=== PATIENT | male | born 1970 | race Caucasian/White ===

== ENCOUNTER 2021-05-20 06:27 | Emergency (ER) | payer BC, SELFPAY ==
--- NOTE | ~2021-05-20 | CT_ITS ---
EXAMINATION: CT abdomen pelvis wo con DATE: 05/20/2021 07:30 INDICATION: Right flank pain. Nausea and vomiting. TECHNIQUE: Computed tomography (CT) of the abdomen and pelvis was performed without intravenous contr ast. Automated exposure control and iterative reconstruction technique were employed. The dose-length product was 1167.63 mGy-cm. COMPARISON: CT abdomen 01/05/2006 FINDINGS: The visualized portions of the lung bases demonstrate mild atelectasis. There is 11 mm nodu le in lingula, increased from 7 mm on 01/05/2006. No pleural effusion. The heart size is normal. No per icardial effusion. There is diffuse hepatic steatosis. The gallbladder, spleen, pancreas, adrenal gla nds, and kidneys are normal. There is mild right hydroureter. There is a 2 mm stone at right ureterov esicular junction. There are no dilated loops of bowel. The appendix is not visualized. There is chrome plater helper daniela mild fat stranding at the root of the small bowel mesentery. There is a supraumbilical ventral he rnia containing fat. There are no pathologically enlarged lymph nodes. There is no free intraperitone al fluid. There is moderate lower lumbar spondylosis. IMPRESSION: 1. 2 mm stone at right ureterovesicular junction with mild right hydroureter. 2. Supraumbilical ventral hernia containing fat. 3. 11 mm nodule in lingula, increased from 7 mm on 01/05/2006, suspicious for low-grade neoplasm such a s carcinoid. CT-guided biopsy is recommended. Reviewed, dictated and finalized at location A. [facility] IMPRESSION: 1. 2 mm stone at right ureterovesicular junction with mild right hydroureter. 2. Supraumbilical ventral hernia containing fat. 3. 11 mm nodule in lingula, increased from 7 mm on 01/05/2006, suspicious for low -grade neoplasm such as carcinoid. CT-guided biopsy is recommended.
--- NOTE | 2021-05-20 06:36 | PC.NURSE ---
Pt reports unable to sit still d/t pain. moaning loudly. vomiting forcefully in wr restroom. c/o dry mouth, and requesting water. awaiting ED bed assignment.
[2021-05-20 06:48] VITALS: BP 162/97; PULSE 88; RESP 18; TEMP 36.8; O2SAT 99
--- NOTE | 2021-05-20 06:54 | ED.GENADULT ---
HPI - General Adult General Chief complaint: Abdominal Pain <Tomi Carter MD - Last Filed: 05/20/21 06:56> Stated complaint: right flank pain <Tomi Carter MD - Last Filed: 05/20/21 06:56> Time Seen by Provider: 05/20/21 06:50 <Tomi Carter MD - Last Filed: 05/20/21 06:56> History of Present Illness HPI narrative: Patient 50-year-old gentleman who presents the emergency department with chief complaint of right flank pain. Patient states the pain began about 530 states that sharp starts in the right flank and radiates to the right lower quadrant patient states is starting to move down into his groin the patient reports he is having nausea with it reports that is not improved by anything nor is it worsened by anything the patient states that has never had pain like this before in the past states he is concerned that he may have a kidney stone patient reports he is had no trauma. <Tomi Carter MD - Last Filed: 05/20/21 06:56> Related Data Allergies/adverse reactions: Allergies Allergy/AdvReac Type Severity Reaction Status Date / Time No Known Allergies Allergy Mild Verified 05/20/21 06:30 <Tomi Carter MD - Last Filed: 05/20/21 06:56> Review of Systems Review of Systems: A 10 system review of systems was completed on the patient and is negative except for what is stated in the HPI. Nursing and ancillary documentation was reviewed. <Tomi Carter MD - Last Filed: 05/20/21 06:56> Exam Narrative: GENERAL: Well-appearing, well-nourished, moderate pain distress. HEAD: Normocephalic, atraumatic. EYES: PERRLA and EOMI. ENT: Nares clear, no rhinorrhea or epistaxis. Mucous membranes moist. NECK: Supple. CHEST: Clear to auscultation. No respiratory distress. HEART: Regular rate and rhythm. No murmur heard. Normal peripheral pulses. ABDOMEN: Soft, nontender, nondistended, normal active bowel sounds. EXTREMITIES: Normal range of motion. No edema. SKIN: Warm, dry, no rash. NEURO: No focal deficits. Alert and oriented x3. PSYCH: Normal mood and affect. <Tomi Carter MD - Last Filed: 05/20/21 06:56> Course Reevaluation(s) Reevaluation #1: Patient feeling much better, currently is asymptomatic. Patient was notified about the size of the pulmonary nodule and the suspicious for slow growing malignancy. A copy of the CAT scan report was given to the patient prior to discharge. The patient and his nodded that they understand my explanation, our nurse Baylee was at the bedside at the same time. <Majo Moseley MD - Last Filed: 05/20/21 10:45> Date: 05/20/21 <Majo Moseley MD - Last Filed: 05/20/21 10:45> Time: 10:37 <Majo Moseley MD - Last Filed: 05/20/21 10:45> Vital Signs Vital signs: Vital Signs Temperature 36.8 C 05/20/21 06:48 Pulse Rate 88 05/20/21 06:48 Respiratory Rate 18 05/20/21 06:48 Blood Pressure 162/97 H 05/20/21 06:48 Pulse Oximetry 99 05/20/21 06:48 Temperature 36.8 C 05/20/21 06:48 Pulse Rate 88 05/20/21 06:48 Respiratory Rate 18 05/20/21 06:48 Blood Pressure 162/97 H 05/20/21 06:48 Pulse Oximetry 99 05/20/21 06:48 <Tomi Carter MD - Last Filed: 05/20/21 06:56> Vital Signs Temperature 36.8 C 05/20/21 06:48 Pulse Rate 88 05/20/21 06:48 Respiratory Rate 18 05/20/21 06:48 Blood Pressure 162/97 H 05/20/21 06:48 Pulse Oximetry 99 05/20/21 06:48 Temperature 36.8 C 05/20/21 06:48 Pulse Rate 88 05/20/21 06:48 Respiratory Rate 18 05/20/21 06:48 Blood Pressure 162/97 H 05/20/21 06:48 Pulse Oximetry 99 05/20/21 06:48 <Majo Moseley MD - Last Filed: 05/20/21 10:45> Medical Decision Making Vital Signs Vital Signs: Vital Signs Temperature 36.8 C 05/20/21 06:48 Pulse Rate 88 05/20/21 06:48 Respiratory Rate 18 05/20/21 06:48 Blood Pressure 162/97 H 05/20/21 06:48
[2021-05-20] MEDS: SODIUM CHLORIDE 0.9% IV 1,000 ML 999 ML IV CONT (07:04)
[2021-05-20] MEDS: ONDANSETRON INJ 4 MG/2 ML VIAL IV PUSH (07:04)
[2021-05-20] MEDS: MORPHINE SULFATE (*CRX) 4 MG/ML INJ IV PUSH (07:05)
[2021-05-20 07:17] LABS: Basophils Percent Auto 0.4 % (0.2-1.2); Eosinophils Absolute Auto 0.2 K/mm3 (0-0.3); Eosinophils Percent Auto 2.2 % (0-4.4); Hematocrit 46.5 % (42.0-52.0); Hemoglobin 16.2 g/dL (14.0-18.0); Immature Granulocyte Absolute 0.04 K/mm3 (0.00-0.031); Immature Granulocyte Percent A 0.5 % (0-0.5); Lymphocytes Absolute Auto 1.62 K/mm3 (0.9-3.2); Lymphocytes Percent Auto 21.1 % (18.3-44.2); Mean Corpuscular HGB Conc 34.8 g/dl (32-36); Mean Corpuscular Hemoglobin 29.7 pg (26-34); Mean Corpuscular Volume 85.2 fl (80-100); Mean Platelet Volume 10.7 fl (7.4-10.4); Monocytes Absolute Auto 0.8 K/mm3 (0.1-0.6); Monocytes Percent Auto 10.2 % (2.6-8.5); Neutrophils Percent Auto 65.6 % (45.5-73.1); Platelet Count Result 179 k/mm3 (150-375); Red Blood Count 5.46 M/mm3 (4.6-6.20); Red Cell Distribution Width 13.2 % (11.5-14.5); White Blood Count 7.7 K/mm3 (4.5-10.0)
[2021-05-20 07:37] LABS: Alanine Aminotransferase 61 U/L (4-50); Albumin Level 4.4 g/dL (3.5-5.1); Alkaline Phosphatase 75 U/L (38-126); Anion Gap 11 mmol/L (8-16); Aspartate Amino Transferase 39 U/L (17-59); Bilirubin,Total 0.8 mg/dL (0.2-1.3); Blood Urea Nitrogen 21 mg/dL (9-20); Calcium 8.9 mg/dL (8.4-10.2); Carbon Dioxide 21 mmol/L (22-30); Chloride 107 mmol/L (98-107); Estimated CRCL calculation 72 ml/min; Estimated Glomerular Filt Rate > 60; Glucose 148 mg/dL (65-110); Potassium 4.4 mmol/L (3.4-5.0); Sodium 139 mmol/L (137-145)
[2021-05-20 09:09] LABS: Add Urine Microscopic? YES; Appearance Urine Clear (Clear); Bilirubin Urine Negative (Negative); Blood Urine 2+ (Negative); Color Urine Yellow (Yellow); Glucose Urine UA Negative (Negative); Ketones Urine Negative (Negative); Leukocyte Esterase Ur Negative LEU/UL (Negative); Nitrate Urine Negative (Negative); Protein Urine Negative (Negative); Specific Grav Ur 1.016 (1.001-1.035); WBC Urine 0-3 /hpf
== END 2021-05-20 11:30 | disposition home or self-care (01) ==
PROVIDERS: Emergency Medicine; Emergency Provider Emergency Medicine; PCP Internal Medicine
DX: N13.2 Hydronephrosis with renal and ureteral calculous obstruction (principal); R91.1 Solitary pulmonary nodule
CPT/HCPCS: 36415; 74176; 80053; 81001; 85025; 96361; 96374; 96375; 99284; J2270; J2405; J7030